=== PATIENT | female | born 1955 | race Caucasian/White ===

== ENCOUNTER 2018-10-15 10:40 | Inpatient (IN) | payer OTHER ==
[~2018-10-15] VITALS: Ht 144.8 cm; Wt 66.7 kg
[2018-10-15 10:46] VITALS: BP 145/70
--- NOTE | 2018-10-15 10:56 | NUR ---
PATIENT AMBULATED TO BED 12 AT THIS TIME.
--- NOTE | 2018-10-15 11:15 | NUR ---
BIB SELF WITH FAMILY C/O SUBSTERNAL BURNING CHEST PAIN X 1 WEEK WHICH RADIATES TO NECK, BILAT SHOULDERS, AND BILAT EARS. PAIN 4/10 AT THIS TIME. CP EXACERBATED BY EXERTION, AMBULATION, LAYING FLAT, AND STRESS. PT A&OX4, BREATHING EVEN AND UNLABORED. NSR ON MONITOR. SKIN WARM, PINK, DRY, AND INTACT.
--- NOTE | 2018-10-15 11:16 | NUR ---
PT EVALUATED BY DR. EUBANKS.
[2018-10-15] MEDS ORDERED: NITROGLYCERIN 2% 1 GM PKT TP ONE (11:20)
[2018-10-15] MEDS ORDERED: ASPIRIN 325 MG TAB PO ONE (11:20)
--- NOTE | 2018-10-15 11:28 | NUR ---
PCXR AT BEDSIDE
[2018-10-15 12:01] LABS: BASOPHILS % (AUTO) 0.6 % (0.0-2.0); EOSINOPHILS # (AUTO) 0.1 K/uL (0-0.4); EOSINOPHILS % (AUTO) 1.2 % (0.0-4.0); HEMATOCRIT 38.8 % (36-48); HEMOGLOBIN 12.9 g/dL (12.0-16.0); LYMPHOCYTES # (AUTO) 1.9 K/uL (2.5-16.5); LYMPHOCYTES % (AUTO) 25.7 % (20.5-51.1); MEAN CORPUSCULAR HEMOGLOBIN 28 pg (27-31); MEAN CORPUSCULAR HGB CONC 33 g/dL (33-37); MEAN CORPUSCULAR VOLUME 85.5 fL (80-94); MONOCYTES # (AUTO) 0.5 K/uL (0.8-1.0); MONOCYTES % (AUTO) 6.7 % (1.7-9.3); NEUTROPHILS # (AUTO) 4.8 K/uL (1.8-7.7); NEUTROPHILS % (AUTO) 65.8 % (42.2-75.2); PLATELET COUNT (AUTO) 269 K/uL (140-450); RED BLOOD CELL COUNT(AUTO) 4.54 MIL/uL (4.20-5.40); RED CELL DISTRIBUTION WIDTH 13.8 % (11.6-13.7); WHITE BLOOD COUNT (AUTO) 7.4 K/uL (4.8-10.8)
--- NOTE | 2018-10-15 12:16 | NUR ---
CHEST PAIN DECREASED 05/23. PT REMAINS NSR. CONTINUE TO MONITOR.
[2018-10-15 12:22] LABS: ALBUMIN 3.4 g/dL (3.4-5.0); CARBON DIOXIDE 25.5 mmol/L (21-32); CREATININE 0.8 mg/dL (0.6-1.3); POTASSIUM 4.5 mmol/L (3.5-5.1); TOTAL BILIRUBIN 0.2 mg/dL (0.0-1.0)
--- NOTE | 2018-10-15 12:38 | NUR ---
troponin 0.255, dr cobb notified
--- NOTE | 2018-10-15 12:54 | NUR ---
PT DENIES CP AT THIS TIME. NSR ON MONITOR. BREATHING EVEN AND UNLABORED.
[2018-10-15] MEDS ORDERED: NACL 0.9% 500 ML IV ONE (13:20)
[2018-10-15] MEDS ORDERED: INSULIN REGULAR, HUMAN 100 UNIT/ML VIAL SUBQ ONE (13:20)
[2018-10-15] MEDS ORDERED: ACETAMINOPHEN 325 MG TAB PO PRN (13:30)
[2018-10-15] MEDS ORDERED: ONDANSETRON 4 MG/2 ML VIAL IVP PRN (13:30)
[2018-10-15] MEDS ORDERED: MORPHINE SULFATE 4 MG/ML SYR IVP PRN (13:30)
[2018-10-15] MEDS ORDERED: DEXTROSE 50% 50 ML SYR IVP PRN (13:30)
[2018-10-15] MEDS ORDERED: ALBUTEROL 0.083% 2.5 MG/3 ML NEBU IH PRN (13:30)
[2018-10-15] MEDS ORDERED: HYDROcodone/APAP 5/325 MG 1 TAB TAB PO PRN (13:30)
--- NOTE | 2018-10-15 14:29 | NUR ---
PT REMAINS PAIN FREE. BREATHING EVEN AND UNLABORED. PT'S FAMILY AT BEDSIDE. AWAITING ADMISSION. CONTINUE TO MONITOR.
--- NOTE | 2018-10-15 14:57 | NUR ---
PT DOES NOT KNOW HOME MEDICATIONS FOR MED REC. PT'S SON CURT TO GO HOME AND BRING MEDICATION CONTAINERS.
--- NOTE | 2018-10-15 15:09 | NUR ---
PT DENIES ANY CHEST PAIN AT THIS TIME.
[2018-10-15] MEDS ORDERED: METF850T PO (15:18)
[2018-10-15] MEDS ORDERED: GLIP5TAB4 PO (15:20)
[2018-10-15] MEDS ORDERED: ASPI-1718 PO (15:24)
[2018-10-15] MEDS ORDERED: ATOR40TA PO (15:24)
--- NOTE | 2018-10-15 15:25 | NUR ---
PT MED RECON DONE, INFORMATION GIVEN BY SHAHANA ELIAS. PT SATBLE AT THIS TIME. DENIES PAIN.
--- NOTE | 2018-10-15 15:25 | NUR ---
PT'S SON CALLED BACK WITH MEDICATION INFORMATION. MED REC UPDATED.
--- NOTE | 2018-10-15 15:30 | NUR ---
PATIENT ADMITTED FROM ED. SBAR REPORT RECEIVED AT BEDSIDE FROM JESUS ARIZMENDI. PATIENT AMBULATORY TO BED. FAMILY AT BEDSIDE. ALERT AND ORIENTED X4. DENIES CHEST PAIN AT THIS TIME. ON ROOM AIR, NO ACUTE RESPIRATORY DISTRESS NOTED. ORIENTED PATIENT TO HOSPITAL ENVIRONMENT. SAFETY MEASURES ENSURED.
--- NOTE | 2018-10-15 15:51 | NUR ---
Patient will be admitted to care of DR HARRISON. Admited to [facility] . Will go to room 110 B. Belongings list completed. Report to JESUS REIS. PT STABLE AT THE TIME OF DISCHARGE.
[2018-10-15 16:00] VITALS: BP 120/58
[2018-10-15] MEDS: BLOOD GLUCOSE MONITORING 1 DEV DEV FS SCH ×2 (16:52→20:04)
[2018-10-15] MEDS: NICOTINE TRANSD SYS 7 MG/24 HR PATCH TD SCH (17:29)
--- NOTE | 2018-10-15 19:08 | NUR ---
SBAR REPORT GIVEN TO NIGHT RN AT BEDSIDE. PATIENT RESTING IN BED, DENIES DISCOMFORT. FAMILY AT BEDSIDE. NO ACUTE DISTRESS NOTED.
--- NOTE | 2018-10-15 19:09 | NUR ---
RECEIVED BEDSIDE REPORT FROM CHATO LEE. PT IS AAOX4. HUNGARIAN SPEAKING ONLY. SON AND AT BEDSIDE. IV ON RAC 20G SL. SKIN INTACT. NICOTINE PATCH ON R CHEST AND NITRO PATCH ON L CHEST. PATIENT AMBULATORY ABLE TO MAKE NEEDS KNOWN. PLAN OF CARE DISCUSSED WITH PATIENT. ALL QUESTIONS AND CONCERNS WERE ANSWERED. CALL LIGHT WITHIN REACH.
[2018-10-15 20:00] VITALS: BP 119/53
--- NOTE | 2018-10-15 20:08 | NUR ---
VITAL SIGNS ARE WITHIN NORMAL LIMITS. BLOOD GLUCOSE 159 WILL HOLD INSULIN SINCE PATIENT NORMAL DOESNT TAKE AT HOME AND WILL RECHECK IN AM. SCHEDULED MEDICATIONS GIVEN. SAFETY MEASURES ARE IN PLACE. WILL CONTINUE TO MONITOR.
[2018-10-15] MEDS ORDERED: glipiZIDE 5 MG TAB PO SCH (21:00)
--- NOTE | 2018-10-15 21:15 | NUR ---
PAGED DR HARRISON REGARDING TROPONIN 0.317 WILL FOLLOW NEW ORDERS.
[2018-10-15] MEDS ORDERED: LOVENOX 1MG/KG Q12H SUBQ SCH (21:25)
--- NOTE | 2018-10-15 22:20 | NUR ---
TORB NEW ORDER OF LOVENOX 60MG BID FIRST DOSE NOW. INPUT ORDER ON PAPER D/T SYSTEM DOWN CHARGE NURSE WITNESS AND OVERRIDE MEDICATION. PATIENT TOLERATED WELL. NO S/S OF DISTRESS. SAFETY MEASURES IN PLACE.
[2018-10-15] MEDS ORDERED: ENOXAPARIN 60 MG/0.6 ML SYR SUBQ ONE (22:26)
[2018-10-15] MEDS ORDERED: ENOXAPARIN 80 MG/0.8 ML SYR SUBQ SCH (23:00)
[2018-10-15] MEDS: ENOXAPARIN 60 MG/0.6 ML SYR SUBQ SCH (23:06)
[2018-10-16] VITALS: BP 118/60
--- NOTE | 2018-10-16 | NUR ---
VITAL SIGNS ARE WITHIN NORMAL LIMITS. PATIENT DENIES PAIN OR SOB. SAFETY MEASURES ARE IN PLACE. WILL CONTINUE TO MONITOR.
--- NOTE | 2018-10-16 02:35 | NUR ---
PATIENT SLEEPING COMFORTABLY IN BED. RESPIRATIONS ARE EQUAL AND UNLABORED. SAFETY MEASURES ARE IN PLACE.
[2018-10-16 04:00] VITALS: BP 141/70
--- NOTE | 2018-10-16 05:00 | NUR ---
VITAL SIGNS ARE WITHIN NORMAL LIMITS. BLOOD GLUCOSE 131 NO COVERAGE NEEDED.
--- NOTE | 2018-10-16 05:21 | NUR ---
RECEIVED CRITICAL LAB VALUE TROPONIN 0.828 TRENDING DOWN. WILL CONTINUE TO MONITOR Addendum: 10/16/18 at 0700 by Tiffanie Sotelo RN TROP DRAWN AT 0345 IS 0.282
[2018-10-16] MEDS: BLOOD GLUCOSE MONITORING 1 DEV DEV FS SCH ×4 (05:31→20:38)
[2018-10-16 06:34] LABS: BASOPHILS % (AUTO) 0.5 % (0.0-2.0); EOSINOPHILS # (AUTO) 0.3 K/uL (0-0.4); EOSINOPHILS % (AUTO) 3.5 % (0.0-4.0); HEMATOCRIT 35.8 % (36-48); HEMOGLOBIN 11.8 g/dL (12.0-16.0); LYMPHOCYTES # (AUTO) 4.5 K/uL (2.5-16.5); LYMPHOCYTES % (AUTO) 48.3 % (20.5-51.1); MEAN CORPUSCULAR HEMOGLOBIN 28 pg (27-31); MEAN CORPUSCULAR HGB CONC 33 g/dL (33-37); MEAN CORPUSCULAR VOLUME 85.2 fL (80-94); MONOCYTES # (AUTO) 0.6 K/uL (0.8-1.0); MONOCYTES % (AUTO) 6.6 % (1.7-9.3); NEUTROPHILS # (AUTO) 3.8 K/uL (1.8-7.7); NEUTROPHILS % (AUTO) 41.1 % (42.2-75.2); PLATELET COUNT (AUTO) 246 K/uL (140-450); RED CELL DISTRIBUTION WIDTH 13.8 % (11.6-13.7); WHITE BLOOD COUNT (AUTO) 9.2 K/uL (4.8-10.8)
[2018-10-16 06:43] LABS: ANION GAP 12.1 (8-16); CARBON DIOXIDE 26.9 mmol/L (21-32); CREATININE 0.6 mg/dL (0.6-1.3)
[2018-10-16 06:48] LABS: MAGNESIUM 1.6 mg/dL (1.8-2.4); PHOSPHORUS 4.9 mg/dL (2.5-4.9)
--- NOTE | 2018-10-16 07:31 | NUR ---
GAVE BEDSIDE REPORT TO DAY SHIFT RN. PATIENT ENDORSED IN STABLE CONDITION.
--- NOTE | 2018-10-16 07:35 | NUR ---
RECEIVED PT FROM NIGHTSHIFT NURSE, PT IS AWAKE AND LYING ON THE BED, SIDE RAILS UP AND CALL LIGHT WITHIN REACH, HAS AN IV LINE ON THE RT AC G. 20ON SALINE LOCK, PT IS NOT A FALL RISK, DENIES PAIN AND NO SOB NOTED. WILL MONITOR PT.
[2018-10-16 08:00] VITALS: BP 132/66
--- NOTE | 2018-10-16 08:01 | NUR ---
PATIENT HAS BEEN SCREENED AND CATEGORIZED MODERATE NUTRITION RISK. PATIENT WILL BE SEEN WITHIN 3-5 DAYS OF ADMISSION. 10/18/18JAY BAHENA RD
[2018-10-16] MEDS ORDERED: ENOXAPARIN 40 MG/0.4 ML SYR SUBQ SCH (09:00)
[2018-10-16] MEDS: ATORVASTATIN 20 MG TAB PO SCH (09:32)
[2018-10-16] MEDS: glipiZIDE 5 MG TAB PO SCH ×2 (09:33→17:33)
[2018-10-16] MEDS: ASPIRIN 81 MG TAB.CHEW PO SCH (09:33)
[2018-10-16] MEDS: ENOXAPARIN 60 MG/0.6 ML SYR SUBQ SCH ×2 (09:35→20:31)
--- NOTE | 2018-10-16 11:00 | NUR ---
PAGED DR. MALDONADO TO INFORM ABOUT THE PT'S MG LEVEL OF 1.6, AWAITING MD CALL BACK.
--- NOTE | 2018-10-16 11:19 | NUR ---
RECEIVED A CALL BACK FROM DR. MALDONADO AND INFORMED MD THAT PT'S MG LEVEL IS 1.[address] HARRISON MADE A TELEPHONE ORDER TO GIVEN PT MAGNESIUM SULFATE 2GM IVPB ONCE NOW, ORDERED READ AND VERIFIED, WILL CARRY OUT ORDER.
[2018-10-16] MEDS ORDERED: MAG SULF 2000 MG/WATER PREMIX 50 ML IV ONE (11:20)
[2018-10-16] MEDS: INSULIN LISPRO SLIDING SCALE 100 UNITS/ML VIAL SUBQ PRN ×3 (11:47→20:32)
--- NOTE | 2018-10-16 11:49 | NUR ---
PT IS AWAKE AND BLOOD GLUCOSE CHECK DONE AND RESULT IS 199, 2 UNITS INSULIN WAS GIVEN ON THE LEFT UA AND PT TOLERATED IT. NO SIGN OF DISTRESS NOTED AND WILL MONITOR PT.
[2018-10-16 12:00] VITALS: BP 130/61
--- NOTE | 2018-10-16 12:14 | NUR ---
PT IS AWAKE AND SON ON THE BEDSIDE, INFORMED THAT MG LEVEL IS 1.6 AND LOW AND MD ORDERED AN MAGNESIUM SULFATE AT 2GM VIA IV, PT WAS TAUGHT OF THE IMPORTANCE OF AND PT VERBALIZED UNDERSTANDING. IV MEDICATION WAS GIVEN AND WILL MONITOR PT.
[2018-10-16 16:00] VITALS: BP 127/50
[2018-10-16] MEDS: NICOTINE TRANSD SYS 7 MG/24 HR PATCH TD SCH (17:33)
--- NOTE | 2018-10-16 17:39 | NUR ---
PT IS AWAKE AND BLOOD GLUCOSE CHECK DONE AND RESULT IS 163, 2 UNITS INSULIN WAS GIVEN ON THE RT UA, ORAL MEDICATION AND NICOTINE PATCH APPLIED ON THE LEFT UA, PT TOLERATED THE MEDICATIONS AND WILL MONITOR PT.
--- NOTE | 2018-10-16 19:15 | NUR ---
ENDORSED PT TO CAR DESIGNER NURSE FOR CONTINUITY OF CARE.
--- NOTE | 2018-10-16 19:16 | NUR ---
RECEIVED REPORT FROM AM NURSE. PT AWAKE, ALERT AND ORIENTED X 4. ABLE TO VERBALIZE NEEDS. SON AT BEDSIDE. RT AC 20G INTACT. NO C/O CHEST PAIN. SAFETY MEASURES IN PLACE. CALL LIGHT WITHIN REACH. WILL CONTINUE TO MONITOR.
[2018-10-16 20:00] VITALS: BP 119/83
--- NOTE | 2018-10-16 20:29 | NUR ---
RECEIVED PATIENT ON NONREBREATHER MASK, PULSE OX SAT 96%. SCHEDULED BREATHING TREATMENT ADMINISTERED. TOLERATED TX WELL, NO ADVERSE SIDE EFFECTS. PATIENT STATES HE DOES NOT LIKE TO WEAR BIPAP. ATTEMPTED TO TITRATE FIO2. PLACED PATIENT ON VENTURI MASK AT 50%, PATIENT DESATURATED TO 50%. PLACED PATIENT BACK ON NONREBREATHER, PULSE OX SAT RETURNED TO 93%. WILL CONTINUE TO MONITOR. Addendum: 10/16/18 at 2032 by Candace Giordano RT ERROR. WRONG PATIENT.
--- NOTE | 2018-10-16 22:00 | NUR ---
ROUNDED ON PT. PT AWAKE IN BED TALKING WITH BED A. NO C/O DISCOMFORT. CALL LIGHT WITHIN REACH. WILL CONTINUE TO MONITOR.
[2018-10-17 00:04] VITALS: BP 122/83
--- NOTE | 2018-10-17 00:05 | NUR ---
VITALS TAKEN. PT SLEEPING BUT EASILY AROUSABLE. NO C/O DISCOMFORT. CALL LIGHT WITHIN REACH. SAFETY PRECAUTIONS IN PLACE. WILL CONTINUE TO MONITOR.
--- NOTE | 2018-10-17 02:21 | NUR ---
ROUNDED ON PT. PT SLEEPING, BREATHING EQUAL AND UNLABORED. SAFETY MEASURES IN PLACE. CALL LIGHT WITHIN REACH. WILL CONTINUE TO MONITOR.
--- NOTE | 2018-10-17 04:00 | NUR ---
VITALS TAKEN. PT SLEEPING BUT EASILY AROUSABLE. PT DENIES ANY C/O DISCOMFORT. SAFETY MEASURES IN PLACE. CALL LIGHT WITHIN REACH. WILL CONTINUE TO MONITOR.
[2018-10-17 04:02] VITALS: BP 114/54
[2018-10-17 06:04] LABS: MAGNESIUM 1.8 mg/dL (1.8-2.4); PHOSPHORUS 5.2 mg/dL (2.5-4.9)
--- NOTE | 2018-10-17 06:05 | NUR ---
ROUNDED ON PT. PT AWAKE, ALERT AND ORIENTED. PT BROUGHT WATER REQUESTED. ALL NEEDS ATTENDED TO. SAFETY MEASURES IN PLACE. CALL LIGHT WITHIN REACH.
[2018-10-17 06:19] LABS: ANION GAP 13.4 (8-16); CARBON DIOXIDE 25.7 mmol/L (21-32); CREATININE 0.6 mg/dL (0.6-1.3); POTASSIUM 4.1 mmol/L (3.5-5.1)
[2018-10-17] MEDS: glipiZIDE 5 MG TAB PO SCH ×2 (06:29→16:50)
[2018-10-17] MEDS: INSULIN LISPRO SLIDING SCALE 100 UNITS/ML VIAL SUBQ PRN ×3 (06:34→20:32)
[2018-10-17] MEDS: BLOOD GLUCOSE MONITORING 1 DEV DEV FS SCH ×4 (06:38→20:38)
[2018-10-17 06:41] LABS: BASOPHILS # (AUTO) 0.1 K/uL (0.00-0.22); BASOPHILS % (AUTO) 1.1 % (0.0-2.0); EOSINOPHILS # (AUTO) 0.3 K/uL (0-0.4); EOSINOPHILS % (AUTO) 3.3 % (0.0-4.0); HEMATOCRIT 38.2 % (36-48); HEMOGLOBIN 12.5 g/dL (12.0-16.0); LYMPHOCYTES # (AUTO) 3.6 K/uL (2.5-16.5); LYMPHOCYTES % (AUTO) 45.4 % (20.5-51.1); MEAN CORPUSCULAR HEMOGLOBIN 28 pg (27-31); MEAN CORPUSCULAR HGB CONC 33 g/dL (33-37); MONOCYTES # (AUTO) 0.7 K/uL (0.8-1.0); MONOCYTES % (AUTO) 8.4 % (1.7-9.3); NEUTROPHILS # (AUTO) 3.3 K/uL (1.8-7.7); NEUTROPHILS % (AUTO) 41.8 % (42.2-75.2); PLATELET COUNT (AUTO) 253 K/uL (140-450); RED CELL DISTRIBUTION WIDTH 13.6 % (11.6-13.7); WHITE BLOOD COUNT (AUTO) 7.9 K/uL (4.8-10.8)
--- NOTE | 2018-10-17 06:42 | NUR ---
RECEIVED CRITICAL LAB VALUE FOR TROPONIN 0.[address] FINNEY AT 0618
--- NOTE | 2018-10-17 07:05 | NUR ---
ENDORSED PT TO AM NURSE, PT IN STABLE CONDITION AT THIS TIME.
--- NOTE | 2018-10-17 07:10 | NUR ---
RECEIVED PT FROM STUDENT SUCCESS ADVISOR NURSE, PT IS AWAKE AND LYING ON T HE BED, SIDE RAILS ARE UP AND CALL LIGHT WITHIN REACH, IV LINE ON SALINE LOCK, INTACT ON THE RT AC G. 20. PT DENIES CHEST PAIN AND NO SIGN OF DISTRESS NOTED. WILL CONTINUE TO MONITOR PT.
[2018-10-17 08:00] VITALS: BP 117/61
[2018-10-17] MEDS: ASPIRIN 81 MG TAB.CHEW PO SCH (08:37)
[2018-10-17] MEDS: ATORVASTATIN 20 MG TAB PO SCH (08:37)
[2018-10-17] MEDS: ENOXAPARIN 60 MG/0.6 ML SYR SUBQ SCH ×2 (08:39→20:33)
--- NOTE | 2018-10-17 08:39 | NUR ---
PT IS AWAKE AND SON ON THE BEDSIDE, PT TALKING TO SON SEATED ON THE BED, ORAL AND SUBQ MEDICATIONS WERE GIVEN AND PT TOLERATED IT, PARAMETER CHECKED. NO SIGN OF DISTRESS NOTED AND WILL MONITOR TP.
--- NOTE | 2018-10-17 11:49 | NUR ---
BLOOD GLUCOSW CHECK DONE TO PT AND IS 264, 6 UNITS INSULIN WAS GIVEN VIA SUBQ ABDOMEN.
[2018-10-17 12:00] VITALS: BP 124/66
--- NOTE | 2018-10-17 13:43 | NUR ---
CALLED OFFICE OF DR Blayne ENRIQUEZ, SPOKE TO MARIELLA, FOLLOW-UP APPOINTMENT MADE ON 10/22/18 AT 1115 AM AT [address] [place] [address]. COPY OF FOLLOW-UP APPOINTMENT GIVEN TO PATIENT AND INSTRUCTED PATIENT TO BRING ALL DISCHARGE PAPERS DURING VISIT, PATIENT VERBALIZED UNDERSTANDING. JESUS WOLFF NOTIFIED.
[2018-10-17 16:00] VITALS: BP 120/63
--- NOTE | 2018-10-17 16:03 | NUR ---
PAGED DR. FARIAS NOW, AWAITING CALL BACK.
[2018-10-17] MEDS: NICOTINE TRANSD SYS 7 MG/24 HR PATCH TD SCH (16:50)
--- NOTE | 2018-10-17 16:55 | NUR ---
PT WAS TRANSFERRED TO ANOTHER ROOM, VITAL SIGNS CHECKED AND BP IS 120/63, PULSE IS 80, O2 SATURATION IS 96%, RESPIRATION IS 16/MIN AND TEMP. IS 97.7, BLOOD GLUCOSE CHECK DONE AND RESULT IS 123 AND NO INSULIN COVERAGE NEEDED. ORAL MEDICATION AND NICOTINE PATCH GIVEN AND APPLIED ON THE RT UA. WILL MONITOR PT.
[2018-10-17] MEDS ORDERED: REGADENOSON 0.4 MG/5 ML SYR IV SCH (18:05)
--- NOTE | 2018-10-17 19:10 | NUR ---
ENDORSED PT TO CONTRACT ASSOCIATE NURSE FOR CONTINUITY OF CARE.
--- NOTE | 2018-10-17 19:11 | NUR ---
RECEIVED REPORT FROM AM NURSE. PT AWAKE, ALERT AND ORIENTED X4. PT SITTING UP SPEAKING WITH FAMILY AT BEDSIDE. RIGHT AC 20G INTACT AND S/L. SAFETY MEASURES IN PLACE. CALL LIGHT WITHIN REACH. WILL CONTINUE TO MONITOR.
--- NOTE | 2018-10-17 19:30 | NUR ---
SPOKE WITH MD REGARDING PLAN OF CARE FOR PT. PT TO RECEIVE LEXISCAN IN THE AM. INSTRUCTED TO WITH HOLD BETA BLOCKERS AND BREAKFAST. WILL ORDER REPEAT TROPONIN LABS.
[2018-10-17 20:05] VITALS: BP 147/63
--- NOTE | 2018-10-17 22:30 | NUR ---
ROUNDED ON PT. PT SLEEPING IN BED. NO VISIBLE SIGNS OF DISTRESS. CALL LIGHT WITHIN REACH.
[2018-10-18] VITALS: BP 112/60
--- NOTE | 2018-10-18 00:30 | NUR ---
CALLED TO INFORM THAT LEXISCAN WILL NOT BE DONE UNTIL 1500, OKAY TO GIVE BREAKFAST BUT NO CAFFEINE.
--- NOTE | 2018-10-18 02:00 | NUR ---
ROUNDED ON PT. PT SLEEPING IN BED, BREATHING EQUAL AND UNLABORED. SAFETY MEASURES IN PLACE. CALL LIGHT WITHIN REACH.
[2018-10-18 04:00] VITALS: BP 121/62
--- NOTE | 2018-10-18 04:43 | NUR ---
ROUNDED ON PT. PT UP AT SINK WASHING HANDS. NO C/O DISCOMFORT.
[2018-10-18] MEDS: INSULIN LISPRO SLIDING SCALE 100 UNITS/ML VIAL SUBQ PRN ×2 (06:37→17:45)
[2018-10-18] MEDS: glipiZIDE 5 MG TAB PO SCH ×2 (06:37→17:43)
[2018-10-18] MEDS: BLOOD GLUCOSE MONITORING 1 DEV DEV FS SCH ×3 (06:42→17:15)
--- NOTE | 2018-10-18 07:05 | NUR ---
ENDORSED TO AM NURSE. PT IN STABLE CONDITION
--- NOTE | 2018-10-18 07:06 | NUR ---
RECEIVED REPORT FROM OUTPATIENT CODER NURSE AT BEDSIDE FOR CONTINUITY OF CARE. PT ASLEEP, S[place] SPEAKING. RIGHT AC IV 20G INTACT AND S/L. UPDATED BOARD. RESPIRATIONS EVEN AND UNLABORED ON ROOM AIR. SAFETY MEASURES IN PLACE. CALL LIGHT WITHIN REACH. WILL CONTINUE TO MONITOR.
[2018-10-18 07:40] LABS: BASOPHILS # (AUTO) 0.1 K/uL (0.00-0.22); BASOPHILS % (AUTO) 0.9 % (0.0-2.0); EOSINOPHILS # (AUTO) 0.2 K/uL (0-0.4); EOSINOPHILS % (AUTO) 2.4 % (0.0-4.0); HEMATOCRIT 39.6 % (36-48); LYMPHOCYTES # (AUTO) 2.7 K/uL (2.5-16.5); LYMPHOCYTES % (AUTO) 35.9 % (20.5-51.1); MEAN CORPUSCULAR HEMOGLOBIN 28 pg (27-31); MEAN CORPUSCULAR HGB CONC 33 g/dL (33-37); MEAN CORPUSCULAR VOLUME 85.4 fL (80-94); MONOCYTES # (AUTO) 0.6 K/uL (0.8-1.0); MONOCYTES % (AUTO) 8.4 % (1.7-9.3); NEUTROPHILS % (AUTO) 52.4 % (42.2-75.2); PLATELET COUNT (AUTO) 251 K/uL (140-450); RED BLOOD CELL COUNT(AUTO) 4.64 MIL/uL (4.20-5.40); WHITE BLOOD COUNT (AUTO) 7.6 K/uL (4.8-10.8)
[2018-10-18 07:42] LABS: ANION GAP 14.4 (8-16); CARBON DIOXIDE 24.5 mmol/L (21-32); CREATININE 0.7 mg/dL (0.6-1.3); POTASSIUM 3.9 mmol/L (3.5-5.1)
[2018-10-18 08:00] VITALS: BP 118/56
[2018-10-18 08:06] LABS: MAGNESIUM 1.8 mg/dL (1.8-2.4); PHOSPHORUS 4.7 mg/dL (2.5-4.9)
[2018-10-18] MEDS: ASPIRIN 81 MG TAB.CHEW PO SCH (08:24)
[2018-10-18] MEDS: ENOXAPARIN 60 MG/0.6 ML SYR SUBQ SCH (08:25)
[2018-10-18] MEDS: ATORVASTATIN 20 MG TAB PO SCH (08:28)
--- NOTE | 2018-10-18 08:28 | NUR ---
ORDERED MEDICATIONS GIVEN. BP MEDICATION WITHHELD PER DR FARIAS'S ORDERS. PATIENT TOLERATED IT WELL. SON PAULINO AT BEDSIDE. SON AND PATIENT AWARE OF NPO AFTER BREAKFAST AND STRESS TEST SCHEDULED AT 1500. WILL CONTINUE TO MONITOR PATIENT.
--- NOTE | 2018-10-18 09:15 | NUR ---
SHAHANA FISHER AT BEDSIDE, NO COMPLAINTS AT THIS TIME. SAFETY PRECAUTIONS IN PLACE, CALL LIGHT WITHIN REACH, WILL CONTINUE TO MONITOR PATIENT.
--- NOTE | 2018-10-18 11:53 | NUR ---
BLOOD SUGAR 230, PATIENT IS NPO FOR STRESS TEST AT 1500, AND SALINE LOCKED. PAGED DR. HARRISON ABOUT COVERAGE. WAITING FOR HIS CALL BACK. PATIENT AND SON AT BEDSIDE AWARE. WILL CONTINUE TO MONITOR PATIENT.
[2018-10-18 12:00] VITALS: BP 112/58
--- NOTE | 2018-10-18 12:40 | NUR ---
JUS, DIRECTOR OF MEDSURG/TELE, AND NITROCELLULOSE OPERATOR SARY AWARE ABOUT BLOOD GLUCOSE. WAITING FOR DR. HARRISON TO CALL BACK.
--- NOTE | 2018-10-18 12:55 | NUR ---
LILIAN NUCLEAR MED TECH IN TO SEE THE PATIENT AND FURTHER EXPLAIN STRESS TEST. SHAHANA ELIAS AT BEDSIDE. WILL CONTINUE TO MONITOR PATIENT.
--- NOTE | 2018-10-18 14:00 | NUR ---
PAGED DR. HARRISON FOR PATIENT'S BLOOD GLUCOSE LEVEL. PATIENT RESTING IN BED, NO COMPLAINTS AT THIS TIME. SHAHANA FISHER AT BEDSIDE. WILL CONTINUE TO MONITOR PATIENT.
--- NOTE | 2018-10-18 14:12 | NUR ---
DR HARRISON CALLED BACK. INSULIN COVERAGE HELD. UPDATED DR. HARRISON WITH PATIENT'S CONDITION AND TROPONIN RESULTS. PATIENT TAKEN TO NUCLEAR MED FOR STRESS TEST VIA WHEELCHAIR. SON AT HER SIDE. WILL WAIT FOR PATIENT TO COME BACK.
--- NOTE | 2018-10-18 14:35 | NUR ---
LILIAN, FROM NUCLEAR MED CALLED. PATIENT WILL NEED TRAY AFTER STRESS TEST. CALLED DIETARY, SPOKE TO DEBBIE ABOUT TRAY FOR PATIENT.
--- NOTE | 2018-10-18 15:23 | NUR ---
DR HARRISON IN TO SEE THE PATIENT. PATIENT STILL AT STRESS TEST, JAMIE IN ROOM. WILL WAIT FOR PATIENT TO COME BACK.
[2018-10-18 16:00] VITALS: BP 138/62
[2018-10-18] MEDS: NICOTINE TRANSD SYS 7 MG/24 HR PATCH TD SCH (17:00)
--- NOTE | 2018-10-18 17:09 | NUR ---
RECEIVED A CALL FROM [employer] AT [facility], REQUESTING FOR CLINICALS AND AUTHORIZATION FROM [facility]. ALL CLINICALS FAXED. AWAITING FOR AUTHORIZATION FROM [facility]. TRANSPORT AUTH [id number] PROVIDED BY [facility]
--- NOTE | 2018-10-18 17:30 | NUR ---
BLOOD SUGAR 171, COVERAGE GIVEN. ORDERED MEDICATIONS GIVEN. PATIENT TOLERATED IT. INFORM PATIENT ABOUT TRANSFER TO [facility]. PATIENT, SON CURT, AND JAMIE VERBALIZED UNDERSTANDING. WILL CONTINUE TO MONITOR PATIENT.
--- NOTE | 2018-10-18 17:46 | NUR ---
YAZAN FROM [facility] GAVE AUTHORIZATION [id number], CALLED KIKI AT [facility] AND GAVE HER THE AUTHORIZATION. SHE SAID SHE WILL CALL ME BACK WITH THE ROOM NUMBER
--- NOTE | 2018-10-18 17:59 | NUR ---
CALLED [facility] AT [phone] ASSISTANT STORE MANAGER OPERATIONS TIME IS AT 1900 TRANSFER TO ROOM 328B. NURSE AIDEN IS AWARE.
--- NOTE | 2018-10-18 18:28 | NUR ---
CALLED [facility] AT [phone], GAVE REPORT TO JESUS SANFORD. PATIENT WILL BE TRANSPORTED TO [facility] BY [facility] TO ROOM 328B. PATIENT AND FAMILY AT BEDSIDE AWARE. WILL CONTINUE TO MONITOR PATIENT.
--- NOTE | 2018-10-18 18:30 | NUR ---
REPORT GIVEN TO CLARIBEL LEE FROM [facility]. PATIENT TO BE PICKED UP FROM [facility] AT 1900. SHE VERBALIZED UNDERSTANDING. WILL CONTINUE TO MONITOR PATIENT.
--- NOTE | 2018-10-18 18:40 | NUR ---
DISCHARGE INSTRUCTIONS AND EDUCATION GIVEN TO PATIENT, JAMIE, AND SON CURT. TELE MONITOR REMOVED. ID BANDS CUT. PATIENT WILL CHANGE INTO HER OWN CLOTHING TO WAIT FOR [facility] TO COME TRANSPORT HER TO [facility]. WILL CONTINUE TO MONITOR PATIENT.
--- NOTE | 2018-10-18 19:20 | NUR ---
REPORT GIVEN TO [facility] STAFF. PATIENT TO BE TRANSPORTED TO [facility]. PATIENT IN STABLE CONDITION. PATIENT TOOK ALL HER BELONGINGS WITH HER, SON CURT AND JAMIE AT SIDE.
== END 2018-10-18 18:50 | disposition short-term general hospital (02) | DRG 190 ==
LOC: MED 10:40 → MTU 13:29
PROVIDERS: ADMIT Internal Medicine Pulmonary Disease; ATTEND Internal Medicine Pulmonary Disease
DX: I21.4 Non-ST elevation (NSTEMI) myocardial infarction (principal); E11.9 Type 2 diabetes mellitus without complications; F17.210 Nicotine dependence, cigarettes, uncomplicated; F32.9 Major depressive disorder, single episode, unspecified; E78.5 Hyperlipidemia, unspecified
CPT/HCPCS: 36415; 71045; 80048; 80053; 82948; 83036; 83690; 83735; 83880; 84100; 84484; 85025; 87081; 93005; 93017; 96360; 96372; 99285; A9500; A9502; J1650; J1815; J2785; J3475; J7030; Q0092